=== PATIENT | male | born 1995 | race Caucasian/White ===

== ENCOUNTER 2022-08-14 10:23 | Emergency (ER) | payer BC ==
[~2022-08-14] VITALS: Ht 165.1 cm; Wt 100.2 kg
[2022-08-14 10:37] VITALS: BP_SYST 149
[2022-08-14] MEDS ORDERED: TRAM50TA2 PO (12:14)
[2022-08-14] MEDS ORDERED: IBUP-1971 PO (12:14)
[2022-08-14] MEDS ORDERED: MORPHINE 4 MG INJ. 4 MG/ML VIAL IM ONE (12:30)
[2022-08-14 12:45] VITALS: BP_SYST 137
== END 2022-08-14 12:43 | disposition home or self-care (01) ==
LOC: SED 10:23
DX: S83.095A Other dislocation of left patella, initial encounter (principal); Z79.899 Other long term (current) drug therapy; W21.02XA Struck by soccer ball, initial encounter; Y93.66 Activity, soccer; Y92.89 Other specified places as the place of occurrence of the external cause; Y99.8 Other external cause status
CPT/HCPCS: 73564; 99283